=== PATIENT | female | born 1945 | race Caucasian/White ===

== ENCOUNTER 2017-01-20 13:23 | Emergency (ER) | payer OTHER ==
[~2017-01-20] VITALS: Ht 167.6 cm; Wt 73.5 kg
[2017-01-20 13:25] VITALS: Ht 167.6 cm; Wt 73.5 kg
--- NOTE | 2017-01-20 13:54 | ERD ---
ER Documentation Chief Complaint Date/Time DATE: 01/20/17 TIME: 13:51 Chief Complaint WHILE ON PLANE, GOT DIZZY WITH HEADACHE HPI This is a 71-year-old female who presents to the emergency room for evaluation of headache, and bilateral ear pain. The patient states that she literally got off of a plane approximately 3 hours ago and states that she is having pain in her ear. She states that the pain started when they started to descend. The patient denies any blurred vision or numbness or tingling associated with this. She states that she has not had any fevers and came to the ER for evaluation ROS All systems reviewed and are negative except as per history of present illness. Physical Exam Vitals Vital Signs Date Time Temp Pulse Resp B/P Pulse Ox O2 Delivery O2 Flow Rate FiO2 01/20/17 13:25 98.7 78 16 133/80 96 Physical Exam INITIAL VITAL SIGNS: Reviewed by me GENERAL: The patient is well developed and appropriate for usual state of health in no apparent distress HEENT: Left tympanic membrane erythematous and bulging, no mastoid bone tenderness, right tympanic membrane within normal limits, pharyngeal erythema with no visible exudate, no pharyngeal edema, pupils equal, round, and reactive to light. EOMI. There is no scleral icterus. NECK: C-spine is soft and supple, there is no meningismus. There is no cervical lymphadenopathy. LUNGS: Clear to auscultation bilaterally. There are no rales, wheezes or rhonchi. HEART: Regular rate and rhythm, no murmurs, clicks, rubs or gallops. ABDOMEN: Soft, non-tender, non-distended. There are bowel sounds in all four quadrants. No rebound or guarding. EXTREMITIES: There is no peripheral cyanosis or edema. No focal swelling or erythema. NEUROLOGICAL: The patient moves all four extremities with 5/5 strength. Cranial nerves II - XII are intact. Normal gait. Alert and oriented SKIN: There is no apparent rash or petechiae. HEME/LYMPHATIC: There is no evidence of excessive bruising or lymphedema. PSYCHIATRIC: The patient does not appear anxious or depressed. Results 24 hrs Current Medications Medications (Trade) Dose Ordered Sig/Blas Route PRN Reason Start Time Stop Time Status Last Admin Dose Admin Loratadine (Claritin) 10 mg ONCE ONCE PO 01/20/17 14:00 01/20/17 14:01 Amoxicillin/ Clavulanate Potassium (Augmentin) 875 mg ONCE ONCE PO 01/20/17 14:00 01/20/17 14:01 Procedures/MDM This 71-year-old female presents to the ER for evaluation of a headache and dizziness. When I evaluated this patient she was hemodynamically stable, has a blood pressure 133/74. Afebrile, negative Kernig sign, negative Brudzinski sign. She is not hypoxic and did have left-sided ear pain. The patient states that her headache is worse on the left side. Examination does reveal left- sided otitis media. I do feel this patient could have a clogged eustachian tube which is causing some of her pain and given the fact that she was in a pressurized air cabin . I also feel this could be contributing to her symptoms. She was given Claritin in the ER, will be discharged home with a prescription for Augmentin Departure Diagnosis: Primary Impression: Acute otitis media, left Additional Impression: Barotitis Condition: Stable LAURYN CHAUDHARY DO Jan 20, 2017 13:54
[2017-01-20] MEDS ORDERED: AMOX1TAB10 PO (13:55)
[2017-01-20] MEDS ORDERED: LORA10CA PO (13:55)
[2017-01-20] MEDS ORDERED: IBUPROFEN 800 MG TAB PO ONE (14:00)
[2017-01-20] MEDS ORDERED: AMOXICILLIN/CLAV 875 MG TAB PO ONE (14:00)
[2017-01-20] MEDS ORDERED: LORATADINE 10 MG TAB PO ONE (14:00)
[2017-01-20] MEDS ORDERED: TELM80TA4 PO (14:10)
[2017-01-20] MEDS ORDERED: IBUP800T25 PO (14:26)
== END 2017-01-20 14:20 | disposition home or self-care (01) ==
LOC: E/R 13:23
DX: H66.92 Otitis media, unspecified, left ear (principal); R40.2252 Coma scale, best verbal response, oriented, at arrival to emergency department; T70.0XXA Otitic barotrauma, initial encounter; R40.2142 Coma scale, eyes open, spontaneous, at arrival to emergency department; R40.2362 Coma scale, best motor response, obeys commands, at arrival to emergency department
CPT/HCPCS: 99283